=== PATIENT | female | born 1995 | race Caucasian/White ===

== ENCOUNTER 2018-03-30 22:40 | Emergency (ER) | payer OTHER ==
--- NOTE | 2018-03-31 08:31 | CT ---
FACIAL BONES CT NONCONTRAST: Date: 03/30/18 INDICATION: Post-traumatic facial injury, facial pain. No prior comparison. FINDINGS: The orbital waterman are intact. No displaced nasal bone fracture. Zygomatic arches are maintained bilat erally. No fracture of the pterygoid plates. Each temporomandibular joint maintains appropriate align ment. No fracture of the maxillary sinus waterman. There is prominent paranasal sinus opacification adis cating mucosal inflammatory disease. Correlate for evidence of sinusitis. No significant subcutaneous soft tissue abnormality visualized. IMPRESSION: 1. No displaced facial bone fracture. 2. Prominent mucosal inflammatory disease of the paranasal sinuses. Given the extensive involvement, recommend nonemergent follow-up with otolaryngology consultation. POS: SUSIE
== END 2018-03-31 00:47 | disposition home or self-care (01) ==
LOC: ERS 22:40
DX: R51 Headache (principal); R68.84 Jaw pain; Y04.0XXA Assault by unarmed brawl or fight, initial encounter
CPT/HCPCS: 70486

== ENCOUNTER 2019-05-06 10:49 | Outpatient (CLI) | payer OTHER ==
--- NOTE | 2019-05-06 12:42 | RAD ---
RIGHT SHOULDER 3 VIEWS: Date: 05/06/19 HISTORY: Shoulder pain. FINDINGS: Humeral head is normally positioned. AC joint normally aligned. There is an exophytic partially calcified mass density extending from the proximal humerus at the hum eral neck. This may represent an exostosis such as osteochondroma; however, other lesions must be con sidered. History of pain is of concern. Recommend further evaluation with MRI shoulder with and witho ut contrast. IMPRESSION: Exophytic partially calcified mass lesion from the proximal humerus. Further evaluation with MRI is r ecommended. CODE T. POS: OFF
== END 2019-05-06 10:50 | disposition home or self-care (01) ==
LOC: RAD-FRANK 10:49
PROVIDERS: ATTEND Nurse Practitioner Family
DX: M25.511 Pain in right shoulder (principal); M89.8X1 Other specified disorders of bone, shoulder